=== PATIENT | male | born 1975 | race African-American/Black ===

== ENCOUNTER 2019-05-01 02:13 | Emergency (ER) | payer SELFPAY ==
[2019-05-01 03:52] LABS: ABSOLUTE BASOPHILS # (AUTO) 0.1 10^3/uL (0.0-0.2); ABSOLUTE LYMPHOCYTES (AUTO) 1.9 10^3/uL (0.5-4.7); ABSOLUTE MONOCYTES (AUTO) 0.6 10^3/uL (0.1-1.4); ABSOLUTE NEUT (AUTO) 7.5 10^3/uL (1.7-8.2); BASOPHILS % (AUTO) 0.8 % (0-2); EOSINOPHILS % (AUTO) 0.3 % (0-6); HEMATOCRIT 40.8 % (37.9-51.0); HEMOGLOBIN 13.6 g/dL (13.5-17.0); MEAN CORPUSCULAR HEMOGLOBIN 30.5 pg (27.0-33.4); MEAN CORPUSCULAR HGB CONC 33.3 g/dL (32.0-36.0); MEAN CORPUSCULAR VOLUME 92 fl (80-97); MONOCYTES % (AUTO) 6.3 % (3-13); PLATELET COUNT 246 10^3/uL (150-450); RED BLOOD COUNT 4.45 10^6/uL (4.35-5.55); RED CELL DISTRIBUTION WIDTH 14.3 % (11.5-14.0); SEGMENTED NEUTROPHILS % (AUTO) 73.6 % (42-78); TOTAL CELLS COUNTED % (AUTO) 100 %; WHITE BLOOD COUNT 10.2 10^3/uL (4.0-10.5)
[2019-05-01 03:57] LABS: ALBUMIN 4.7 g/dL (3.5-5.0); ALKALINE PHOSPHATASE 73 U/L (38-126); ANION GAP 7 (5-19); ASPARTATE AMINO TRANSFERASE 39 U/L (17-59); BILIRUBIN,DIRECT 0.2 mg/dL (0.0-0.4); BILIRUBIN,TOTAL 0.5 mg/dL (0.2-1.3); BLOOD UREA NITROGEN 12 mg/dL (7-20); CALCIUM 9.6 mg/dL (8.4-10.2); CARBON DIOXIDE 26 mmol/L (22-30); CHLORIDE 107 mmol/L (98-107); GLUCOSE 145 mg/dL (75-110); POTASSIUM 4.4 mmol/L (3.6-5.0); TOTAL PROTEIN 8.2 g/dL (6.3-8.2)
[2019-05-01 05:20] LABS: APPEARANCE,URINE CLEAR; BILIRUBIN,URINE NEGATIVE (NEGATIVE); COLOR,URINE YELLOW; GLUCOSE, URINE 50 mg/dL (NEGATIVE); KETONES,URINE NEGATIVE (NEGATIVE); LEUKOCYTE ESTERASE,URINE NEGATIVE (NEGATIVE); NITRITE,URINE NEGATIVE (NEGATIVE); PROTEIN,URINE 30 mg/dL (NEGATIVE); URINE SPECIFIC GRAVITY 1.012; UROBILINOGEN,URINE NEGATIVE mg/dL (<2.0)
--- NOTE | 2019-05-01 09:03 | ER Document Report ---
ED GI/ - General Chief Complaint: Possible Kidney Stone Stated Complaint: BACK PAIN Time Seen by Provider: 05/01/19 08:11 Notes: Patient is a 43-year-old male who presents the emergency department with a chief complaint of right flank pain. Patient reports last night he was sitting down watching TV when he developed acute onset of right flank pain. Patient reports at times this would radiate into his right lower abdomen. Patient reports that it primarily stayed in his right flank area. Patient reports that he has not had a fever or difficulty urinating. Patient has not noted obvious blood in the urine. Patient reports he did vomit 5 times at home but since being in the emergency department the nausea and vomiting have subsided. Patient reports he does not have a history of kidney stones. Patient denies any pertinent past m edical or surgical history. Patient denies home medications. Patient currently denies abdominal pain or flank pain. TRAVEL OUTSIDE OF THE [place] IN LAST 30 DAYS: No - Related Data Allergies/Adverse Reactions: No Known Allergies Allergy (Unverified 04/18/16 13:22) Past Medical History - General Information source: Patient - Social History Smoking Status: Never Smoker Frequency of alcohol use: None Drug Abuse: None Lives with: Family Family History: Reviewed & Not Pertinent Patient has suicidal ideation: No Patient has homicidal ideation: No - Past Medical History Cardiac Medical History: Reports: None Pulmonary Medical History: Reports: None EENT Medical History: Reports: None Neurological Medical History: Reports: None Endocrine Medical History: Reports: None Renal/ Medical History: Reports: None Malignancy Medical History: Reports None GI Medical History: Reports: None Musculoskeletal Medical History: Reports None Skin Medical History: Reports None Psychiatric Medical History: Reports: None Traumatic Medical History: Reports: None Infectious Medical History: Reports: None Surgical Hx: Negative Review of Systems - Review of Systems Constitutional: No symptoms reported EENT: No symptoms reported Cardiovascular: No symptoms reported Respiratory: No symptoms reported Gastrointestinal: See HPI Genitourinary: No symptoms reported Male Genitourinary: No symptoms reported Musculoskeletal: See HPI Skin: No symptoms reported Hematologic/Lymphatic: No symptoms reported Neurological/Psychological: No symptoms reported Physical Exam - Vital signs Vitals: Temp Pulse Resp BP Pulse Ox 97.5 F 46 L 16 179/105 H 100 05/01/19 02:21 05/01/19 02:21 05/01/19 02:21 05/01/19 02:21 05/01/19 02:21 Interpretation: Hypertensive - Notes Notes: GENERAL: Well-appearing, well-nourished and in no acute distress. HEAD: Atraumatic, normocephalic. EYES: Pupils equal round and reactive to light, extraocular movements intact, sclera anicteric, conjunctiva are normal. ENT: Nares patent, oropharynx clear without exudates. Moist mucous membranes. NECK: Normal range of motion, supple without lymphadenopathy or JVD. LUNGS: Breath sounds clear to auscultation bilaterally and equal. No wheezes rales or rhonchi. HEART: Regular rate and rhythm without murmurs, rubs or gallops. ABDOMEN: Soft, nontender, normoactive bowel sounds. No guarding, no rebound. No masses appreciated. BACK: No cervical, thoracic, lumbar midline tenderness. No saddle anesthesia, normal distal neurovascular exam. No CVA tenderness. GENITOURINARY: Deferred. EXTREMITIES: Normal range of motion, no pitting or edema. No clubbing or cyanosis. NEUROLOGICAL: Cranial nerves II through XII grossly intact. Normal speech, normal gait. PSYCH: Normal mood, normal affect. SKIN: Warm, Dry, normal turgor, no rashes or lesions noted. Course - Re-evaluation Re-evalutation: 05/01/19 09:02 Upon initial assessment patient resting comfortably on stretcher. Patient reports his right flank pain has subsided since being here in the emergency department. Patient reports he has not had any nausea or vomiting. Will obtain a CT of the abdomen and pelvis without contrast to rule out kidney stone or ur eteral stone. Blood work is unremarkable. 05/01/19 09:[address] shows a right perinephric stranding with mild hydronephrosis. It was read that the patient could have passed a recent stone or has pyelonephritis. Patient did not have symptoms of pyelonephritis without CVA tenderness, fever, tachycardia, hypotension or infection within the urine. Most likely patient passed a stone as his symptoms have resolved here in the emergency department. I did have the update the patient and make him aware of this. Will discharge the patient with anti-inflammatories as well as antinausea medicine as needed. Patient given strict return precautions. - Vital Signs Vital signs: Temp Pulse Resp BP Pulse Ox 98.0 F 67 16 143/95 H 97 01/05/20 09:53 05/01/19 09:53 05/01/19 09:53 05/01/19 09:53 05/01/19 09:53 - Laboratory Result Diagrams: 05/01/19 03:28 05/01/19 03:28 Laboratory results interpreted by me: 05/01/19 05/01/19 05/01/19 03:28 03:28 04:52 RDW 14.3 H Glucose 145 H Urine Protein 30 H Urine Glucose (UA) 50 H Urine Blood MODERATE H 05/01/19 10:08 Patient does not have a leukocytosis, anemia or alteration in his electrolytes or kidney function. Patient's liver enzymes are within normal limits. Patient does have moderate blood within the urine with 66 RBCs. No leukocytes or nitrites. Laboratory 05/01/19 05/01/19 05/01/19 03:28 03:28 04:52 WBC 10.2 RBC 4.45 Hgb 13.6 Hct 40.8 MCV 92 MCH 30.5 MCHC 33.3 RDW 14.3 H Plt Count 246 Lymph % (Auto) 19.0 [place] % (Auto) 6.3 Eos % (Auto) 0.3 Baso % (Auto) 0.8 Absolute Neuts (auto) 7.5 Absolute Lymphs (auto) 1.9 Absolute Monos (auto) 0.6 Absolute Eos (auto) 0.0 Absolute Basos (auto) 0.1 Seg Neutrophils % 73.6 Sodium 139.6 Potassium 4.4 Chloride 107 Carbon Dioxide 26 Anion Gap 7 BUN 12 Creatinine 1.03 Est GFR ( Amer) > 60 Est GFR (MDRD) Non-Af > 60 Glucose 145 H Calcium 9.6 Total Bilirubin 0.5 Direct Bilirubin 0.2 Neonat Total Bilirubin Not Reportable Neonat Direct Bilirubin Not Reportable Neonat Indirect Bili Not Reportable AST 39 ALT 49 Alkaline Phosphatase 73 Total Protein 8.2 Albumin 4.7 Lipase 191.6 Urine Color YELLOW Urine Appearance CLEAR Urine pH 7.0 Ur Specific Rosanky 1.012 Urine Protein 30 H Urine Glucose (UA) 50 H Urine Ketones NEGATIVE Urine Blood MODERATE H Urine Nitrite NEGATIVE Urine Bilirubin NEGATIVE Urine Urobilinogen NEGATIVE Ur Leukocyte Esterase NEGATIVE Urine WBC (Auto) 4 Urine RBC (Auto) 66 U Hyaline Cast (Auto) 5 Squamous Epi Cells Auto <1 Urine Mucus (Auto) RARE Urine Ascorbic Acid NEGATIVE - Diagnostic Test Radiology reviewed: Reports reviewed Radiology results interpreted by me: 05/01/19 09:43 Abdomen/Pelvis CT 05/01/19 08:33 IMPRESSION: Right-sided perinephric stranding with minimal right hydronephrosis and hydroureter. This could be due to a recently passed stone or, could be related to pyelonephritis. Normal appendix Moderate stool in the ascending colon Discharge - Discharge Clinical Impression: Right flank pain Condition: Stable Disposition: HOME, SELF-CARE Additional Instructions: *Today was seen in the emergency department for right flank pain. It does appear from your CAT scan that you have recently passed a stone as you do have some inflammation. There is no obvious stone. Your symptoms have resolved. I will prescribe you an anti-inflammatory called Toradol, take this as needed if you develop pain. Your urine did not show signs of infection you do not require antibiotics at this time. Please return to the emergency department if you develop a fever, difficulty urinating, increased right flank pain that starts again, vomiting or any new or worsening symptoms. Kidney Stone You are passing or have passed a kidney stone. These stones are usually due to increased calcium or uric acid concentrations in your urine. Stones within the kidney itself are not painful. The pain occurs as the stone leaves the kidney to pass down the long tube, called the ureter, leading to the bladder. If the stone is small, it will usually pass by itself. Most patients can pass the stone at home. You will usually receive medications for pain, nausea or vomiting, and sometimes a medication to assist in passing the kidney stone. However, if the pain is very severe or if vomiting prevents you from taking oral pain medications, you may need to return for further treatment. Drink three or four quarts of fluids per day. You will be given pain medication (if needed) and urine strainers. Strain all your urine to see if the stone passes. If your doctor has asked you to bring the stone in for analysis, return with the stone once it has passed. Return if pain or vomiting become severe, if you develop a high fever, if you are unable to pass your urine, or if other unusual symptoms occur. Prescriptions: Ketorolac Tromethamine [Toradol 10 mg Tablet] 10 mg PO Q8HP PRN #15 tablet PRN Reason: Ondansetron [Zofran Odt 4 mg Tablet] 1 tab PO Q6 PRN #15 tab.rapdis PRN Reason: For Nausea/Vomiting
--- NOTE | 2019-05-01 09:15 | RADIOLOGY REPORT (SQ) ---
EXAM DESCRIPTION: CT ABD/PELVIS NO ORAL OR IV COMPLETED DATE/TIME: 05/01/2019 8:49 am REASON FOR STUDY: right flank pain COMPARISON: None. TECHNIQUE: CT scan of the abdomen and pelvis performed without intravenous or oral contrast. Images reviewed with lung, soft tissue, and bone windows. Reconstructed coronal and sagittal MPR images revi ewed. All images stored on PACS. All CT scanners at this facility use dose modulation, iterative reconstruction, and/or weight based d osing when appropriate to reduce radiation dose to as low as reasonably achievable (ALARA). [facility]: Dose Right [facility]: CareDose [facility]: Dose Right [facility]: Teradose 4D [facility]: Smart [employer] RADIATION DOSE: CT Rad equipment meets quality standard of care and radiation dose reduction techniq ues were employed. CTDIvol: 11.2 mGy. DLP: 621 mGy-cm.mGy. LIMITATIONS: None. FINDINGS: There is no stranding in the right perinephric fat, and very mild right hydronephrosis and hydroureter. However, no radiopaque urinary calculi are identified. This could be due to recently passed stone, or could be seen in right-sided pyelonephritis. No right renal cysts or masses. No radiopaque calculi in the kidney or ureter. Normal appendix LOWER CHEST: No significant findings. No nodules or infiltrates. NON-CONTRASTED LIVER, SPLEEN, ADRENALS: Evaluation limited by lack of IV contrast. No identified sign ificant masses. PANCREAS: No masses. No peripancreatic inflammatory changes. GALLBLADDER: No identified stones by CT criteria. No inflammatory changes to suggest cholecystitis. RIGHT KIDNEY AND URETER: As above LEFT KIDNEY AND URETER: No suspicious masses. Assessment limited by lack of IV contrast. No signifi cant calcifications. No hydronephrosis or hydroureter. AORTA AND RETROPERITONEUM: No aneurysm. No retroperitoneal masses or adenopathy. BOWEL AND PERITONEAL CAVITY: No obvious masses or inflammatory changes. No free fluid. Moderate stoo l in the ascending colon APPENDIX: Normal. PELVIS, BLADDER, AND ABDOMINAL WALL:No abnormal masses. No free fluid. Bladder normal. BONES: No significant findings. OTHER: No other significant finding. IMPRESSION: Right-sided perinephric stranding with minimal right hydronephrosis and hydroureter. Th is could be due to a recently passed stone or, could be related to pyelonephritis. Normal appendix Moderate stool in the ascending colon COMMENT: Quality ID # [id number]: Final reports with documentation of one or more dose reduction techniques (e.g., Automated exposure control, adjustment of the mA and/or kV according to patient size, use of iterative reconstruction technique) TECHNICAL DOCUMENTATION: JOB ID: [id number] [employer]- All Rights Reserved Reading location - IP/workstation name: [email or web address]
[2019-05-01 09:55] VITALS: BP 143/95
== END 2019-05-01 09:53 | disposition home or self-care (01) ==
LOC: ER 02:13
DX: R10.31 Right lower quadrant pain (principal); M54.9 Dorsalgia, unspecified
CPT/HCPCS: 36415; 74176; 80053; 81001; 83690; 85025; 99284